=== PATIENT | female | born 1975 | race American Indian/Alaskan Native ===

== ENCOUNTER 2019-01-17 15:07 | Emergency (ER) | payer MEDICAID ==
[~2019-01-17] VITALS: Ht 154.9 cm; Wt 72.7 kg
[~2019-01-17 15:07] MED LIST: CYCL-120 PO; IBUP-1051 PO
[2019-01-17 15:12] VITALS: BP 128/79
[2019-01-17] MEDS ORDERED: penicillin G benzathine 1.2 million unit/2ml syringe IM ONE ×2 (15:15→15:55)
--- NOTE | 2019-01-17 16:16 | NUR ---
Patient is not in the WR or the room (18) that KATHY Albarado placed her in to examine her. I called the phone number on and there was no answer.
--- NOTE | 2019-01-17 17:32 | NUR ---
PT ELOPED PRIOR TO RECEIVING TX FOR STD. ATTEMPTED TO CALL PT AND ASK TO COME BACK, UNABLE TO LEAVE MESSAGE DO TO NOT MESSAGE BOX.
--- NOTE | 2019-01-17 17:34 | NUR ---
Patient called again to inform her that she needs to be treated but there was no pecan picker again. Patient does not have a voice mail set up.
[2019-01-19 11:13] LABS: RPR Reactive (Non Reactive)
== END 2019-01-17 17:39 | disposition home or self-care (01) ==
LOC: ER 15:08
DX: A53.9 Syphilis, unspecified (principal); E11.9 Type 2 diabetes mellitus without complications; Z98.51 Tubal ligation status; Z98.890 Other specified postprocedural states; Z79.899 Other long term (current) drug therapy; Z56.0 Unemployment, unspecified
CPT/HCPCS: 36415; 86592; 99283

== ENCOUNTER 2023-02-24 08:21 | Emergency (ER) | payer SELFPAY ==
[~2023-02-24] VITALS: Ht 154.9 cm; Wt 87.2 kg
[2023-02-24 09:17] LABS: BASOPHILS % (AUTO) 0.8 % (0-1); EOSINOPHILS # (AUTO) 0.2 X10'3 (0-0.9); EOSINOPHILS % (AUTO) 4.5 % (0-6); HEMATOCRIT 36.5 % (35.0-45.0); HEMOGLOBIN 12.4 g/dl (12.0-16.0); LYMPHOCYTES # (AUTO) 1.8 X10'3 (1.1-4.8); LYMPHOCYTES % (AUTO) 32.3 % (21-51); MEAN CORPUSCULAR HEMOGLOBIN 29.8 PG (27.0-31.0); MEAN CORPUSCULAR VOLUME 87.9 FL (78-98); MONOCYTES # (AUTO) 0.3 X10'3 (0-0.9); NEUTROPHILS # (AUTO) 3.1 X10'3 (1.8-7.7); NEUTROPHILS % (AUTO) 56.4 % (42-75); PLATELET COUNT 221 X10'3 (140-440); RED BLOOD COUNT 4.16 X10'6 (4.20-5.60); RED CELL DISTRIBUTION WIDTH 14.3 % (11.5-14.5); WHITE BLOOD COUNT 5.4 X10'3 (4.5-11.0)
[2023-02-24 09:32] LABS: ALANINE AMINOTRANSFERASE 69 U/L (12-78); ALBUMIN 3.3 G/DL (3.4-5.0); ALBUMIN/GLOBULIN RATIO 0.9 (1.1-1.5); ALKALINE PHOSPHATASE 82 IU/L (46-116); ANION GAP 12 (8-16); ASPARTATE AMINO TRANSFERASE 59 U/L (10-37); BILIRUBIN,TOTAL 0.2 MG/DL (0.1-1.0); BLOOD UREA NITROGEN 7 MG/DL (7-18); CALCIUM 8.2 MG/DL (8.5-10.1); CHLORIDE 109 MMOL/L (99-107); CREATININE 0.88 MG/DL (0.40-0.90); GLUCOSE 144 MG/DL (70-104); POTASSIUM 3.7 MMOL/L (3.5-5.1); SODIUM 143 MMOL/L (135-145); TOTAL CARBON DIOXIDE 22.5 MMOL/L (24-32); TOTAL PROTEIN 6.9 G/DL (6.4-8.2); eGFR 68 ML/MIN
[2023-02-24] MEDS ORDERED: HYDR12.55 PO (09:50)
[2023-02-24 09:57] VITALS: BP 108/64
[2023-02-24 10:00] LABS: URINE HCG NEGATIVE (NEG)
[2023-02-24 10:04] LABS: CLARITY,URINE CLOUDY (Clear); COLOR,URINE YELLOW (Yellow); GLUCOSE, URINE NEGATIVE (Neg); KETONES,URINE NEGATIVE (Neg); LEUKOCYTE ESTERASE ,URINE NEGATIVE (Neg); NITRITES, URINE NEGATIVE (Neg); OCCULT BLOOD,URINE NEGATIVE (Neg); PH,URINE 5.5 (4.8-8.0); PROTEIN,URINE NEGATIVE (Neg); UROBILINOGEN,URINE 0.2 E.U/dL (0.2-1.0)
[2023-02-24 10:14] LABS: URINE AMPHETAMINE SCREEN NEGATIVE (Neg); URINE BARBITUATE SCREEN NEGATIVE (Neg); URINE BENZODIAZEPINES SCREEN NEGATIVE (Neg); URINE CANNABINOID SCREEN NEGATIVE (Neg); URINE COCAINE SCREEN NEGATIVE (Neg); URINE METHADONE SCREEN NEGATIVE (Neg); URINE OPIATE SCREEN NEGATIVE (Neg); URINE PHENCYCLIDINE SCREEN NEGATIVE (Neg)
[2023-02-24 10:15] LABS: UA COLLECTION TYPE CLN CATCH MIDSTREAM
[2023-02-24 10:17] LABS: BACTERIA,URINE 1+ /HPF (Neg); MUCUS STRANDS MODERATE /LPF (Neg); RBC,URINE NONE SEEN /HPF (0-2); SQUAMOUS EPITHELIAL CELL,UR MANY /LPF (FEW); WBC,URINE 0-4 /HPF (0-4)
== END 2023-02-24 10:05 | disposition home or self-care (01) ==
LOC: ER 08:21
DX: I50.9 Heart failure, unspecified (principal); R60.0 Localized edema; E11.9 Type 2 diabetes mellitus without complications; Z98.890 Other specified postprocedural states; Z56.0 Unemployment, unspecified
CPT/HCPCS: 36415; 71045; 80053; 80305; 81001; 81025; 83880; 84484; 85025; 93005; 93306; 99285